=== PATIENT | female | born 1990 | race African-American/Black ===

== ENCOUNTER 2016-08-13 19:52 | Emergency (ER) | payer BC ==
[2016-08-13] MEDS ORDERED: Lidocaine 1% 20 ML MDV INJECT ONE (20:07)
[2016-08-13] MEDS ORDERED: Diphtheria,Pertussis(Acell),Tetanus Vaccine 0.5 ML Syringe IM ONE (20:07)
[2016-08-13] MEDS ORDERED: Bacitracin Oint 1 GM U/D Packet TOP ONE (20:07)
--- NOTE | 2016-08-13 20:13 | EDM.PDOC ---
ED HPI Skin/Rash - General Chief Complaint: Laceration Stated Complaint: LACERATION RT MIDDLE FINGER Time Seen by Provider: 08/13/16 20:08 - History of Present Illness INITIAL COMMENTS - FREE TEXT/NARRATIVE: HISTORY AND PHYSICAL: History of present illness: Patient 25 year black female deserts or laceration of the third digit of her left hand that occurred when she was washing dishes she is up-to-date on her tetanus and denies any other trauma or concern Review of systems: As per history of present illness and below otherwise all systems reviewed and negative. Past medical history: As per history of present illness and as reviewed below otherwise noncontributory. Surgical history: As per history of present illness and as reviewed below otherwise noncontributory. Social history: No reported history of drug or alcohol abuse. Family history: As per history of present illness and as reviewed below otherwise noncontributory. Physical exam: HEENT: Atraumatic, normocephalic, pupils reactive, negative for conjunctival pallor or scleral icterus, mucous membranes moist, throat clear, neck supple, nontender, trachea midline. Lungs: Clear to auscultation, breath sounds equal bilaterally, chest nontender. Heart: S1S2, regular, negative for clicks, rubs, or JVD. Abdomen: Soft, nondistended, nontender. Negative for masses or hepatosplenomegaly. Negative for costovertebral tenderness. Pelvis: Stable nontender. Genitourinary: Deferred. Rectal: Deferred. Extremities: Patient has approximately 2 cm moderate depth laceration of the proximal aspect of the third digit of her left hand this is on the volar surface as no tendon involvement CMS neurovascular is unremarkable Neuro: Awake, alert, oriented. Cranial nerves II through XII unremarkable. Cerebellum unremarkable. Motor and sensory unremarkable throughout. Exam nonfocal. Diagnostics: None Therapeutics: Patient was anesthetized 1% lidocaine without epinephrine irrigated prepped and draped in sterile manner and closed with 4-0 nylon interrupted suture gauze bacitracin was applied Impression: #1 laceration third digit left hand Definitive disposition and diagnosis as appropriate pending reevaluation and review of above. - Related Data Allergies Allergy/AdvReac Type Severity Reaction Status Date / Time No Known Allergies Allergy Verified 01/15/16 01:00 Home Meds: Ambulatory Orders Medication Instructions Recorded Confirmed #103/Iron Fumarate/Fa 1 each PO DAILY 11/30/15 01/15/16 [ ] Past Medical History - Past Health History Medical/Surgical History: Denies Medical/Surgical History HEENT History: Reports: None Cardiovascular History: Reports: None Respiratory History: Reports: None Gastrointestinal History: Reports: None Genitourinary History: Reports: None Musculoskeletal History: Reports: None Neurological History: Reports: None Psychiatric History: Reports: None Endocrine/Metabolic History: Reports: None Hematologic History: Reports: None Immunologic History: Reports: None Oncologic (Cancer) History: Reports: None Dermatologic History: Reports: None - Infectious Disease History Infectious Disease History: Reports: None - Past Surgical History HEENT Surgical History: Reports: None Cardiovascular Surgical History: Reports: None Respiratory Surgical History: Reports: None GI Surgical History: Reports: None Female Surgical History: Reports: None Social & Family History - Family History Family Medical History: Noncontributory - Tobacco Use Smoking Status *Q: Never Smoker Second Hand Smoke Exposure: No - Recreational Drug Use Recreational Drug Use: No ED ROS GENERAL - Review of Systems Review Of Systems: ROS reveals no pertinent complaints other than HPI. ED EXAM, SKIN/RASH Exam: See Below (See dictation) Course - Vital Signs Last Recorded V/S: Last Vital Signs Temp 36.9 C 08/13/16 19:55 Pulse 73 08/13/16 19:55 Resp 18 08/13/16 19:55 BP 133/78 08/13/16 19:55 Pulse Ox 100 08/13/16 19:55 - Orders/Labs/Meds Orders: Active Orders 24 hr Category Date Time Status Vaccines to be Administered [RC] PER UNIT ROUTINE Care 08/13/16 20:07 Active Meds: Medications Discontinued Medications Generic Name Dose Route Start Last Admin Trade Name Luann PRN Reason Stop Dose Admin Bacitracin 1 dose 08/13/16 20:07 Bacitracin Oint 1 Gm TOP 08/13/16 20:08 ONETIME ONE Diphtheria/Tetanus/Acell Pertussis 0.5 ml 08/13/16 20:07 Adacel IM 08/13/16 20:08 .ONCE ONE Lidocaine HCl 20 ml 08/13/16 20:07 Xylocaine 1% INJECT 08/13/16 20:08 ONETIME ONE Departure - Departure Time of Disposition: 20:12 Disposition: Home, Self-Care 01 Condition: good Clinical Impression: Hand laceration Forms: ED Department Discharge Additional Instructions: The following information is given to patients seen in the emergency department who are being discharged to home. This information is to outline your options for follow-up care. We provide all patients seen in our emergency department with a follow-up referral. The need for follow-up, as well as the timing and circumstances, are variable depending upon the specifics of your emergency department visit. If you don't have a primary care physician on staff, we will provide you with a referral. We always advise you to contact your personal physician following an emergency department visit to inform them of the circumstance of the visit and for follow-up with them and/or the need for any referrals to a consulting specialist. The emergency department will also refer you to a specialist when appropriate. This referral assures that you have the opportunity for followup care with a specialist. All of these measure are taken in an effort to provide you with optimal care, which includes your followup. Under all circumstances we always encourage you to contact your private physician who remains a resource for coordinating your care. When calling for followup care, please make the office aware that this follow-up is from your recent emergency room visit. If for any reason you are refused follow-up, please contact the [facility] emergency department at and asked to speak to the emergency department charge nurse. Followup primary medical doctor one to 2 days suture removal 10-14 days return as needed as discussed - My Orders Last 24 Hours: My Active Orders 08/13/16 20:07 Vaccines to be Administered [RC] PER UNIT ROUTINE - Assessment/Plan Last 24 Hours: My Active Orders 08/13/16 20:07 Vaccines to be Administered [RC] PER UNIT ROUTINE
[2016-08-13 20:48] VITALS: BP 128/74
== END 2016-08-13 20:40 | disposition home or self-care (01) ==
LOC: MW.ED 19:52
DX: S61.212A Laceration without foreign body of right middle finger without damage to nail, initial encounter (principal); Z23 Encounter for immunization; W45.8XXA Other foreign body or object entering through skin, initial encounter; Y93.G1 Activity, food preparation and clean up
CPT/HCPCS: 12001; 90471; 90715; 99282; 99282-25

== ENCOUNTER 2016-10-09 15:47 | Emergency (ER) | payer BC ==
--- NOTE | 2016-10-09 16:05 | EDM.PDOC ---
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 Patient indicates she is passing clots and felt that she was since she has not had a menstrual cycle since the end of July.] Review of systems: As per history of present illness and below otherwise all systems reviewed and negative. Past medical history: As per history of present illness and as reviewed below otherwise noncontributory. Surgical history: As per history of present illness and as reviewed below otherwise noncontributory. Social history: No reported history of drug or alcohol abuse. Family history: As per history of present illness and as reviewed below otherwise noncontributory. Physical exam: HEENT: Atraumatic, normocephalic, pupils reactive, negative for conjunctival pallor or scleral icterus, mucous membranes moist, throat clear, neck supple, nontender, trachea midline. Lungs: Clear to auscultation, breath sounds equal bilaterally, chest nontender. Heart: S1S2, regular, negative for clicks, rubs, or JVD. Abdomen: Soft, nondistended, nontender. Negative for masses or hepatosplenomegaly. Negative for costovertebral tenderness. Pelvis: Stable nontender. Genitourinary: Deferred. Rectal: Deferred. Extremities: Atraumatic, negative for cords or calf pain. Neurovascular unremarkable. Neuro: Awake, alert, oriented. Cranial nerves II through XII unremarkable. Cerebellum unremarkable. Motor and sensory unremarkable throughout. Exam nonfocal. Diagnostics: [HCG Quant, UA, CBC, CMP, Rh, transvag US] Therapeutics: [] Impression: [Live intrauterine of approximately 10 week] Plan: [Pelvic rest followup with OB] Definitive disposition and diagnosis as appropriate pending reevaluation and review of above. - Related Data Allergies Allergy/AdvReac Type Severity Reaction Status Date / Time No Known Allergies Allergy Verified 10/09/16 15:55 Home Meds: Home Meds . 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: , Spontaneous Musculoskeletal History: Reports: None Neurological History: Reports: None Psychiatric History: Reports: None Endocrine/Metabolic History: Reports: None Hematologic History: Reports: None Immunologic History: Reports: None Oncologic (Cancer) History: Reports: None Dermatologic History: Reports: None - Infectious Disease History Infectious Disease History: Reports: None - Past Surgical History HEENT Surgical History: Reports: None Cardiovascular Surgical History: Reports: None Respiratory Surgical History: Reports: None GI Surgical History: Reports: None Female Surgical History: Reports: None Social & Family History - Family History Family Medical History: Noncontributory - Tobacco Use Smoking Status *Q: Never Smoker Second Hand Smoke Exposure: No - Caffeine Use Caffeine Use: Reports: None - Recreational Drug Use Recreational Drug Use: No ED ROS GENERAL - Review of Systems Review Of Systems: See Below (The history of present illness) ED EXAM - Physical Exam Exam: See Below (History of present illness) Course - Vital Signs Last Recorded V/S: Last Vital Signs Temp 36.4 C 10/09/16 15:57 Pulse 86 10/09/16 15:57 Resp 16 10/09/16 15:57 BP 121/86 10/09/16 15:57 Pulse Ox 98 10/09/16 15:57 - Orders/Labs/Meds Orders: Active Orders 24 hr Category Date Time Status OB 1st Tri Sgl 1st Gest [US] Stat Exams 10/09/16 16:33 Ordered CULTURE URINE [] Stat Lab 10/09/16 16:16 Ordered Labs: Laboratory Tests 10/09/16 10/09/16 10/09/16 Range/Units 15:54 16:03 16:03 WBC 11.90 H (4.0-11.0) K/uL RBC 5.71 (4.30-5.90) M/uL Hgb 12.4 (12.0-16.0) g/dL Hct 38.0 (36.0-46.0) % MCV 66.5 L (80.0-98.0) fL MCH 21.7 L (27.0-32.0) pg MCHC 32.6 (31.0-37.0) g/dL RDW Std Deviation 37.0 (28.0-62.0) fl RDW Coeff of Mirta 16 H (11.0-15.0) % Plt Count 321 (150-400) K/uL Neut % (Auto) 66.4 (48.0-80.0) % Lymph % (Auto) 26.3 (16.0-40.0) % [place] % (Auto) 4.6 (0.0-15.0) % Eos % (Auto) 2.5 (0.0-7.0) % Baso % (Auto) 0.2 (0.0-1.5) % Neut # (Auto) 7.9 H (1.4-5.7) K/uL Lymph # (Auto) 3.1 H (0.6-2.4) K/uL [place] # (Auto) 0.6 (0.0-0.8) K/uL Eos # (Auto) 0.3 (0.0-0.7) K/uL Baso # (Auto) 0.0 (0.0-0.1) K/uL Nucleated RBC % 0.0 /100WBC Nucleated RBCs # 0 K/uL HCG, Quant 943843.3 mIU/mL Urine Color YELLOW Urine Appearance SLT CLOUDY Urine pH 6.5 (5.0-8.0) Ur Specific [place] 1.020 (1.001-1.035) Urine Protein TRACE (NEGATIVE) mg/dL Urine Glucose (UA) NEGATIVE (NEGATIVE) mg/dL Urine Ketones NEGATIVE (NEGATIVE) mg/dL Urine Occult Blood LARGE H (NEGATIVE) Urine Nitrite NEGATIVE (NEGATIVE) Urine Bilirubin NEGATIVE (NEGATIVE) Urine Urobilinogen 0.2 (<2.0) EU/dL Ur Leukocyte Esterase NEGATIVE (NEGATIVE) Urine RBC 50-75 H (0-2/HPF) Urine WBC 0-1 (0-5/HPF) Ur Epithelial Cells FEW (NONE-FEW) Urine Bacteria FEW (NEGATIVE) Urine Mucus LIGHT (NONE-MOD) Blood Type 10/09/16 Range/Units 16:03 WBC (4.0-11.0) K/uL RBC (4.30-5.90) M/uL Hgb (12.0-16.0) g/dL Hct (36.0-46.0) % MCV (80.0-98.0) fL MCH (27.0-32.0) pg MCHC (31.0-37.0) g/dL RDW Std Deviation (28.0-62.0) fl RDW Coeff of [place] (11.0-15.0) % Plt Count (150-400) K/uL Neut % (Auto) (48.0-80.0) % Lymph % (Auto) (16.0-40.0) % [place] % (Auto) (0.0-15.0) % Eos % (Auto) (0.0-7.0) % Baso % (Auto) (0.0-1.5) % Neut # (Auto) (1.4-5.7) K/uL Lymph # (Auto) (0.6-2.4) K/uL [place] # (Auto) (0.0-0.8) K/uL Eos # (Auto) (0.0-0.7) K/uL Baso # (Auto) (0.0-0.1) K/uL Nucleated RBC % /100WBC Nucleated RBCs # K/uL HCG, Quant mIU/mL Urine Color Urine Appearance Urine pH (5.0-8.0) Ur Specific [place] (1.001-1.035) Urine Protein (NEGATIVE) mg/dL Urine Glucose (UA) (NEGATIVE) mg/dL Urine Ketones (NEGATIVE) mg/dL Urine Occult Blood (NEGATIVE) Urine Nitrite (NEGATIVE) Urine Bilirubin (NEGATIVE) Urine Urobilinogen (<2.0) EU/dL Ur Leukocyte Esterase (NEGATIVE) Urine RBC (0-2/HPF) Urine WBC (0-5/HPF) Ur Epithelial Cells (NONE-FEW) Urine Bacteria (NEGATIVE) Urine Mucus (NONE-MOD) Blood Type O POSITIVE Departure - Departure Time of Disposition: 18:57 Disposition: Home, Self-Care 01 Condition: good Clinical Impression: Threatened , Intrauterine - Discharge Information Forms: ED Department Discharge Additional Instructions: The following information is given to patients seen in the emergency department who are being discharged to home. This information is to outline your options for follow-up care. We provide all patients seen in our emergency department with a follow-up referral. The need for follow-up, as well as the timing and circumstances, are variable depending upon the specifics of your emergency department visit. If you don't have a primary care physician on staff, we will provide you with a referral. We always advise you to contact your personal physician following an emergency department visit to inform them of the circumstance of the visit and for follow-up with them and/or the need for any referrals to a consulting specialist. The emergency department will also refer you to a specialist when appropriate. This referral assures that you have the opportunity for follow-up care with a specialist. All of these measure are taken in an effort to provide you with optimal care, which includes your follow-up. Under all circumstances we always encourage you to contact your private physician who remains a resource for coordinating your care. When calling for follow-up care, please make the office aware that this follow-up is from your recent emergency room visit. If for any reason you are refused follow-up, please contact the [facility] Emergency Department at and asked to speak to the emergency department charge nurse. Pelvic rest for the next 4-6 weeks Followup with your OB KOREY Return to ED as needed as discussed - My Orders Last 24 Hours: My Active Orders 10/09/16 16:16 CULTURE URINE [RM] Stat 10/09/16 16:33 OB 1st Tri Sgl 1st Gest [US] Stat - Assessment/Plan Last 24 Hours: My Active Orders 10/09/16 16:16 CULTURE URINE [RM] Stat 10/09/16 16:33 OB 1st Tri Sgl 1st Gest [US] Stat
[2016-10-09 19:10] VITALS: BP 120/85
--- NOTE | 2016-10-11 13:31 | US ---
EXAM DATE: 10/09/16 PATIENT'S AGE: 25 Patient: LANA BARBER Facility: [place], [place] Site . Site : 1990 Study: US OB Pelvis [id number] 6:05:37 PM Ordering Physician: Doctor Shoemaker Final Report: INDICATION: First trimester with bleeding. Technique: Early obstetrical ultrasound. Transabdominal images were obtained. Findings: Intrauterine . A pole or yolk sac and cardiac activity is present. The heart rate measures 154 beats per minute. A thin rim of crescentic hypoechoic fluid is present around the fundal portion of the gestational sac. The ovaries are sonographically unremarkable. No free fluid is present in the pelvis. Impression: Small crescentic subchorionic fluid collection adjacent to the fundal endometrium in gestational sac. Intrauterine with gestational age of 10 weeks according to crown-rump length of 3.1 cm. Estimated delivery date of 05/07/2017. Dictated by Gilson Arriaga MD @ Oct 09 2016 6:32PM (Electronic Signature) Report Signed by Proxy. GEENA
== END 2016-10-09 19:03 | disposition home or self-care (01) ==
LOC: MW.ED 15:47
DX: O20.0 Threatened abortion (principal); Z3A.10 10 weeks gestation of pregnancy
CPT/HCPCS: 36415; 76801; 76801-26; 81001; 84702; 85025; 86900; 86901; 99283; 99284-25

== ENCOUNTER 2016-12-09 16:40 | Emergency (ER) | payer BC ==
--- NOTE | 2016-12-09 18:44 | EDM.PDOC ---
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 She's been following regularly with her psychological aide, Lacy Ruelas, who recommends that she comes to the ER for evaluation. G2, P1.] Review of systems: As per history of present illness and below otherwise all systems reviewed and negative. Past medical history: As per history of present illness and as reviewed below otherwise noncontributory. Surgical history: As per history of present illness and as reviewed below otherwise noncontributory. Social history: No reported history of drug or alcohol abuse. Family history: As per history of present illness and as reviewed below otherwise noncontributory. Physical exam: HEENT: Atraumatic, normocephalic. Lungs: Clear to auscultation, breath sounds equal bilaterally. Heart: S1S2, regular rate and rhythm. Abdomen: Gravid, consistent with 16 week . Otherwise Soft, nondistended , nontender. Genitourinary: Deferred. Rectal: Deferred. Extremities: Atraumatic, ambulatory. Neurovascular unremarkable. Neuro: Awake, alert, oriented. Motor and sensory unremarkable throughout. Exam nonfocal. Diagnostics: [2nd trimester OB ultrasound] Impression: [viable 18 week, 6 day intrauterine ] Plan: [Follow up with OB next week. Return to ER as needed as discussed. Strict return precautions are given. Patient is in agreement with today's plan. ] Definitive disposition and diagnosis as appropriate pending reevaluation and review of above. - Related Data Allergies Allergy/AdvReac Type Severity Reaction Status Date / Time No Known Allergies Allergy Verified 12/09/16 16:52 Home Meds: Home Meds . 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: , Spontaneous Musculoskeletal History: Reports: None Neurological History: Reports: None Psychiatric History: Reports: None Endocrine/Metabolic History: Reports: None Hematologic History: Reports: None Immunologic History: Reports: None Oncologic (Cancer) History: Reports: None Dermatologic History: Reports: None - Infectious Disease History Infectious Disease History: Reports: None - Past Surgical History HEENT Surgical History: Reports: None Cardiovascular Surgical History: Reports: None Respiratory Surgical History: Reports: None GI Surgical History: Reports: None Female Surgical History: Reports: None Social & Family History - Family History Family Medical History: Noncontributory - Tobacco Use Smoking Status *Q: Never Smoker Second Hand Smoke Exposure: No - Caffeine Use Caffeine Use: Reports: None - Recreational Drug Use Recreational Drug Use: No ED ROS GENERAL - Review of Systems Review Of Systems: ROS reveals no pertinent complaints other than HPI. ED EXAM - Physical Exam Exam: See Below Course - Vital Signs Last Recorded V/S: Last Vital Signs Temp 97.7 F 12/09/16 16:53 Pulse 84 12/09/16 19:03 Resp 16 12/09/16 19:03 BP 123/76 12/09/16 19:03 Pulse Ox 97 12/09/16 19:03 Departure - Departure Time of Disposition: 18:52 Disposition: Home, Self-Care 01 Condition: Good Clinical Impression: 18 weeks gestation of - Discharge Information Instructions: Second Trimester of , [id number] Referrals: Lacy Ruelas CNM [Primary Care Provider] - Forms: ED Department Discharge Additional Instructions: The following information is given to patients seen in the emergency department who are being discharged to home. This information is to outline your options for follow-up care. We provide all patients seen in our emergency department with a follow-up referral. The need for follow-up, as well as the timing and circumstances, are variable depending upon the specifics of your emergency department visit. If you don't have a primary care physician on staff, we will provide you with a referral. We always advise you to contact your personal physician following an emergency department visit to inform them of the circumstance of the visit and for follow-up with them and/or the need for any referrals to a consulting specialist. The emergency department will also refer you to a specialist when appropriate. This referral assures that you have the opportunity for follow-up care with a specialist. All of these measure are taken in an effort to provide you with optimal care, which includes your follow-up. Under all circumstances we always encourage you to contact your private physician who remains a resource for coordinating your care. When calling for follow-up care, please make the office aware that this follow-up is from your recent emergency room visit. If for any reason you are refused follow-up, please contact the [facility] emergency department at and asked to speak to the emergency department charge nurse. [facility] Primary care - Women's Health [address] [place] [id number] Follow-up with Lacy Ruelas next week as you have scheduled. Return to ER as needed as discussed.
--- NOTE | 2016-12-09 20:04 | US ---
EXAM DATE: 12/09/16 PATIENT'S AGE: 26 Patient: LANA BARBER Facility: [place], [place] Site . Site : 1990 Study: OB Pelvis [id number] 6:42:51 PM Ordering Physician: Doctor Shoemaker Final Report: INDICATION: No movement for 2 days TECHNIQUE: Limited transabdominal OB pelvic ultrasound COMPARISON: October 09, 2016 FINDINGS: Sonographic imaging demonstrates a single living intrauterine gestation. Fetus demonstrates a regular cardiac rate of 131 beats per minute. Fetus has a cephalic orientation. The placenta lies posterior without evidence of placenta previa. Amniotic fluid volume appears normal. The following biometric measurements were obtained: Biparietal diameter: 4.4 cm/ 19 weeks 2 days Head circumference: 16.0 cm/18 weeks 6 days Abdominal circumference: 12.3 cm/ 18 weeks 0 days Femur length: 3.0 cm/ 19 weeks 2 days The composite ultrasound gestational age is calculated at 18 weeks 6 days with an estimated sonographic due date of May 06, 2017. The estimated weight is 246 gram grams which lies at the 44%. There is adequate diastolic blood flow within the umbilical artery. IMPRESSION.: Viable intrauterine . No gross abnormalities seen. Dictated by Mariaelena Yip MD @ Dec 09 2016 6:52PM (Electronic Signature) Report Signed by Proxy. GEENA
[2016-12-10 01:15] VITALS: BP 123/76
== END 2016-12-09 19:03 | disposition home or self-care (01) ==
LOC: MW.ED 16:40
DX: Z34.82 Encounter for supervision of other normal pregnancy, second trimester (principal); Z3A.16 16 weeks gestation of pregnancy
CPT/HCPCS: 76815; 76815-26; 99283; 99283-25

== ENCOUNTER 2017-03-17 21:24 | Observation (INO) | payer BC ==
[2017-03-17] MEDS ORDERED: Nalbuphine 10 MG/1 ML Vial IVPUSH PRN (22:58)
[2017-03-17] MEDS ORDERED: Butorphanol 1 MG/ML SDV IVPUSH PRN (22:58)
[2017-03-17] MEDS ORDERED: Sodium Chloride 0.9% 2.5 ML Syringe FLUSH PRN (22:58)
[2017-03-17] MEDS ORDERED: Sodium Chloride 0.9% 10 ML Syringe FLUSH PRN (22:58)
[2017-03-17] MEDS ORDERED: Water For Irrigation,Sterile 1,000 ML Container IRR PRN (22:58)
[2017-03-17] MEDS ORDERED: Lactated Ringers 1,000 ML IV SCH (23:00)
[2017-03-17] MEDS ORDERED: Betamethasone Acetate/Betamethasone Sod Phosphate 30 MG/5 ML MDV IM SCH ×2 (23:00)
--- NOTE | 2017-03-17 23:11 | PCM.LDHP ---
L&D History of Present Illness - General Date of Service: 03/17/17 Admit Problem/Dx: Patient Status Order with Admit Dx/Problem 03/17/17 22:59 Patient Status [ADT] Routine Admission Diagnosis/Problem Admission Diagnosis/Problem Source of Information: Patient History Limitations: Reports: No Limitations - History of Present Illness Improves with: Reports: None Worsens with: Reports: None Associated Symptoms: Reports: N - Related Data Allergies/Adverse Reactions: Allergies Allergy/AdvReac Type Severity Reaction Status Date / Time No Known Allergies Allergy Verified 12/09/16 16:52 Home Medications: Home Meds . [No Known Home Meds] 10/09/16 [History] Past Medical History - Past Health History Medical/Surgical History: Denies Medical/Surgical History HEENT History: Reports: None Cardiovascular History: Reports: None Respiratory History: Reports: None Gastrointestinal History: Reports: None Genitourinary History: Reports: None CLOTH LAYER History: Reports: , Spontaneous Musculoskeletal History: Reports: None Neurological History: Reports: None Psychiatric History: Reports: None Endocrine/Metabolic History: Reports: None Hematologic History: Reports: None Immunologic History: Reports: None Oncologic (Cancer) History: Reports: None Dermatologic History: Reports: None - Infectious Disease History Infectious Disease History: Reports: None - Past Surgical History HEENT Surgical History: Reports: None Cardiovascular Surgical History: Reports: None Respiratory Surgical History: Reports: None GI Surgical History: Reports: None Female Surgical History: Reports: None Social & Family History - Family History Family Medical History: Noncontributory - Tobacco Use Smoking Status *Q: Never Smoker Second Hand Smoke Exposure: No - Caffeine Use Caffeine Use: Reports: None - Recreational Drug Use Recreational Drug Use: No H&P Review of Systems - Review of Systems: Review Of Systems: See Below General: Reports: No Symptoms HEENT: Reports: No Symptoms Pulmonary: Reports: No Symptoms Cardiovascular: Reports: No Symptoms Gastrointestinal: Reports: No Symptoms Genitourinary: Reports: No Symptoms Musculoskeletal: Reports: No Symptoms Skin: Reports: No Symptoms Psychiatric: Reports: No Symptoms Neurological: Reports: No Symptoms Hematologic/Lymphatic: Reports: No Symptoms Immunologic: Reports: No Symptoms L&D Exam - Exam Exam: See Below - Vital Signs Weight: 83.915 kg - OB Specific Fundal Height In cm: 32 Contraction Intensity: Mild Movement: Active Heart Tones: Present Presentation: Vertex - Jorge Score Jorge Score Cervix Position: Midposition Jorge Score Consistency: Medium Jorge Score Effacement: 31-50% Jorge Score Dilation: Closed Jorge Score Infant's Station: -3 Jorge Score Total: 3 - Exam General: Alert, Oriented HEENT: PERRLA, Conjunctiva Clear, EACs Clear, EOMI, Hearing Intact, Mucosa Moist & [place], Nares Patent, Normal Nasal Septum, Posterior Pharynx Clear, TMs Clear Neck: Supple, Trachea Midline Lungs: Clear to Auscultation, Normal Respiratory Effort Cardiovascular: Regular Rate, Regular Rhythm GI/Abdominal Exam: Normal Bowel Sounds, Soft, Non-Tender, No Organomegaly, No Distention, No Abnormal Bruit, No Mass, Pelvis Stable Rectal Exam: Normal Exam, Normal Rectal Tone Genitourinary: Normal external exam, Normal bimanual exam, Normal speculum exam Back Exam: Normal Inspection, Full Range of Motion Extremities: Normal Inspection, Normal Range of Motion, Non-Tender, No Pedal Edema, Normal Capillary Refill Skin: Warm, Dry, Intact Neurological: Cranial Nerves Intact, Reflexes Equal Bilateral Psychiatric: Alert, Normal Affect, Normal Mood - Patient Data Lab Results Last 24 hrs: Laboratory Results - last 24 hr 03/17/17 Range/Units 21:40 Membrane Rupture POSITIVE Problem List Initiated/Reviewed/Updated: Yes Orders Last 24hrs: Active Orders 24 hr Category Date Time Status Patient Status [ADT] Routine ADT 03/17/17 22:59 Ordered Heart Tones [RC] CONTINUOUS Care 03/17/17 22:59 Ordered Non Stress Test [RC] PER UNIT ROUTINE Care 03/17/17 22:59 Ordered May Shower [RC] ASDIRECTED Care 03/17/17 22:59 Ordered Notify Provider [RC] PRN Care 03/17/17 22:59 Ordered Up ad Crystal [RC] ASDIRECTED Care 03/17/17 22:59 Ordered Vaginal Exam [RC] PRN Care 03/17/17 22:59 Ordered Vital Signs [RC] PER UNIT ROUTINE Care 03/17/17 22:59 Ordered Regular Diet [DIET] Diet 03/17/17 Breakfast Ordered OB Ltd 1 or More Fetus [US] Routine Exams 03/17/17 22:03 Ordered CBC W/O DIFF,HEMOGRAM [HEME] Routine Lab 03/17/17 22:59 Ordered TYPE AND SCREEN [BBK] Routine Lab 03/17/17 22:59 Ordered Ampicillin 1 gm Med 03/17/17 23:00 Ordered Sodium Chloride 0.9% [Normal Saline] 50 ml IV Q6H Betamet Acet/Betamet Na Phos [Celestone Soluspan 6 MG/ Med 03/17/17 23:00 Ordered ML] 12 mg IM Q24H Betamet Acet/Betamet Na Phos [Celestone Soluspan 6 MG/ Med 03/17/17 23:00 Ordered ML] 12 mg IM Q24H Butorphanol [Stadol] Med 03/17/17 22:58 Ordered 1 mg IVPUSH Q1H PRN Lactated Ringers @ 150 MLS/HR(1000ml) Med 03/17/17 23:00 Ordered Lactated Ringers [Ringers, Lactated] 1,000 ml IV ASDIRECTED Lactated Ringers [Ringers, Lactated] 1,000 ml Med 03/17/17 23:15 Ordered IV ASDIRECTED Nalbuphine [Nubain] Med 03/17/17 22:58 Ordered 10 mg IVPUSH Q1H PRN Sodium Chloride 0.9% [Saline Flush] Med 03/17/17 22:58 Ordered 10 ml FLUSH ASDIRECTED PRN Sodium Chloride 0.9% [Saline Flush] Med 03/17/17 22:58 Ordered 2.5 ml FLUSH ASDIRECTED PRN Water For Irrigation,Sterile [Sterile Water for Med 03/17/17 22:58 Ordered Irrigation] 1,000 ml IRR ASDIRECTED PRN Scalp Electrode [WOMSER] Per Unit Routine Oth 03/17/17 22:59 Ordered Peripheral IV Insertion Adult [OM.PC] Routine Oth 03/17/17 22:59 Ordered Resuscitation Status Routine Resus Stat 03/17/17 22:58 Ordered Medication Orders Betamethasone Acet/Betameth SodPhos (Celestone Soluspan 6 Mg/Ml) 12 mg IM Q24H JSOIE Lactated Ringer's (Ringers, Lactated) 1,000 mls @ 125 mls/hr IV ASDIRECTED JOSIE Assessment/Plan Comment:: IUP 32 wks P1001 had SROM at 8 pm that was confirmed with amiotest and decrease amniotic fluid by us. Plan to admitted to the hospital start on antibiotic steroid and then will transfer the pt in am.
[2017-03-17] MEDS: Lactated Ringers 1,000 ML IV SCH (23:52)
[2017-03-17] MEDS: Ampicillin 1 GM in Sodium Chloride 0.9% 50 ML IV SCH (23:56)
[2017-03-18] MEDS: Lactated Ringers 1,000 ML IV SCH (05:12)
[2017-03-18] MEDS: Ampicillin 1 GM in Sodium Chloride 0.9% 50 ML IV SCH (05:50)
--- NOTE | 2017-03-18 09:48 | PCM.PNLD ---
Labor Progress Note - VS & Meds Active Medications: Current Medications Betamethasone Acet/Betameth SodPhos (Celestone Soluspan 6 Mg/Ml) 12 mg IM Q24H [facility] Last Admin: 03/17/17 23:42 Dose: 12 mg Betamethasone Acet/Betameth SodPhos (Celestone Soluspan 6 Mg/Ml) 12 mg IM Q24H [facility] Stop: 03/18/17 23:01 Butorphanol Tartrate (Stadol) 1 mg IVPUSH Q1H PRN PRN Reason: Pain Lactated Ringer's (Ringers, Lactated) 1,000 mls @ 125 mls/hr IV ASDIRECTED [facility] Last Admin: 03/18/17 05:12 Dose: 125 mls/hr Ampicillin Sodium 1 gm/ Sodium (Chloride) 50 mls @ 100 mls/hr IV Q6H [facility] Last Infusion: 03/18/17 05:51 Dose: 100 mls/hr Lactated Ringer's (Ringers, Lactated) 1,000 mls @ 150 mls/hr IV ASDIRECTED [facility] Nalbuphine HCl (Nubain) 10 mg IVPUSH Q1H PRN PRN Reason: Pain (severe 7-10) Sodium Chloride (Saline Flush) 10 ml FLUSH ASDIRECTED PRN PRN Reason: Keep Vein Open Sodium Chloride (Saline Flush) 2.5 ml FLUSH ASDIRECTED PRN PRN Reason: Keep Vein Open Sterile Water (Sterile Water For Irrigation) 1,000 ml IRR ASDIRECTED PRN PRN Reason: delivery - Uterine Contractions Uterine Monitoring Mode: External [place] Contraction Duration (sec): mild Contraction Intensity: Mild - Monitoring Monitor Mode: External Ultrasound Heart Rate (FHR) Variability: Moderate (6-25 bmp) Decelerations: None Strip Review: Category I - Vaginal Exam Station: Out of Pelvis - Labor Progress (Free Text) Labor Progress: Pt afebriel not natalya she will be transfer to [facility] accept her.
--- NOTE | 2017-03-18 14:29 | US ---
EXAM DATE: 03/17/17 PATIENT'S AGE: 26 Patient: LANA BARBER Facility: [place], [place] Site . Site : 1990 Study: OB Pelvis [id number] 11:03:21 PM Ordering Physician: Frances Dawkins Final Report: INDICATION: Rupture of membranes, 32 weeks 4 days TECHNIQUE: Limited transabdominal OB pelvis for evaluation of amniotic fluid index. COMPARISON: December 23, 2016 FINDINGS: Sonographic imaging demonstrates a single living intrauterine gestation. Fetus demonstrates a regular cardiac rate of 130 beats per minute. Fetus has a vertex orientation. The amniotic fluid index is 8.1 cm. IMPRESSION: 1. Single living intrauterine gestation. 2. Amniotic fluid index is 8.1 cm, slightly lower than normal. Dictated by Mariaeelna Yip MD @ Mar 17 2017 11:14PM (Electronic Signature) Report Signed by Proxy. GEENA
== END 2017-03-18 10:45 ==
LOC: MW.OBCHECK 21:24 → MW.OB 22:31 → MW.OBCHECK 23:08
PROVIDERS: ADMIT Obstetrics & Gynecology; ATTEND Obstetrics & Gynecology
DX: O42.913 Preterm premature rupture of membranes, unspecified as to length of time between rupture and onset of labor, third trimester (principal); Z3A.32 32 weeks gestation of pregnancy
CPT/HCPCS: 59025; 76815; 84112; 85027; 86850; 86900; 86901; 96361; 96372; 96374; 96376; G0378; J0290; J0702; J7050; J7120

== ENCOUNTER 2024-08-26 19:53 | Emergency (ER) | payer BC ==
[2024-08-26 20:08] LABS: APPEARANCE,URINE CLEAR; BILIRUBIN,URINE NEGATIVE (NEGATIVE); COLOR,URINE YELLOW; GLUCOSE,URINE NEGATIVE (NEGATIVE); KETONES,URINE NEGATIVE (NEGATIVE); LEUKOCYTE ESTERASE,URINE NEGATIVE (NEGATIVE); NITRITE,URINE NEGATIVE (NEGATIVE); OCCULT BLOOD,URINE NEGATIVE (NEGATIVE); PROTEIN,URINE NEGATIVE (NEGATIVE); UROBILINOGEN,URINE 0.2 EU/dL (<2.0)
[2024-08-26 20:22] LABS: BASOPHILS ABSOLUTE AUTO 0.03 K/uL (0.00-0.20); BASOPHILS PERCENT AUTO 0.3 % (0.0-1.0); EOSINOPHILS ABSOLUTE AUTO 0.14 K/uL (0.00-0.45); EOSINOPHILS PERCENT AUTO 1.2 % (0.0-6.0); HEMATOCRIT 38.9 % (37.0-47.0); HEMOGLOBIN 12.5 g/dL (12.0-16.0); IMMATURE GRAN ABSOLUTE AUTO 0.08 K/uL (0.00-0.05); IMMATURE GRAN PERCENT AUTO 0.7 % (0.0-0.4); LYMPHOCYTES ABSOLUTE AUTO 2.72 K/uL (1.00-4.80); LYMPHOCYTES PERCENT AUTO 23.3 % (24.0-44.0); MEAN CORPUSCULAR HEMOGLOBIN 22.2 pg (28.0-32.0); MEAN CORPUSCULAR HGB CONC 32.1 g/dL (32.0-36.0); MEAN PLATELET VOLUME 10.4 fL (9.4-12.3); MONOCYTES ABSOLUTE AUTO 0.64 K/uL (0.00-0.80); MONOCYTES PERCENT AUTO 5.5 % (0.0-8.0); NEUTROPHILS ABSOLUTE AUTO 8.07 K/uL (1.80-7.70); PLATELET COUNT,PLT 307 K/uL (150-400); RED BLOOD CELL COUNT 5.64 M/uL (4.10-5.30); WHITE BLOOD CELL COUNT,WBC 11.68 K/uL (3.9-11.3)
[2024-08-26] MEDS: Acetaminophen 500 MG Tab PO ONE (20:29)
[2024-08-26] MEDS: Ondansetron 4 MG Tab.DIS PO ONE (20:29)
[2024-08-26 20:47] LABS: ALBUMIN 3.8 g/dL (3.4-5.0); BILIRUBIN TOTAL 0.4 mg/dL (0.2-1.0); CALCIUM 9.3 mg/dL (8.5-10.1); CARBON DIOXIDE,CO2 25.8 mmol/L (21.0-32.0); CREATININE 0.7 mg/dL (0.6-1.0); EST CRCL DRUG DOSING (CG) 103.82 mL/min; POTASSIUM,K 3.7 mmol/L (3.5-5.1); PROTEIN TOTAL,TP 7.5 g/dL (6.4-8.2)
[2024-08-26 22:10] VITALS: BP 131/91; PULSE 83
== END 2024-08-26 22:10 | disposition home or self-care (01) ==
LOC: MW.ED 19:53
DX: O99.891 Other specified diseases and conditions complicating pregnancy (principal); R10.2 Pelvic and perineal pain; Z79.899 Other long term (current) drug therapy; Z3A.00 Weeks of gestation of pregnancy not specified; Z75.8 Other problems related to medical facilities and other health care
CPT/HCPCS: 36415; 76817; 80053; 81003; 83605; 83690; 84702; 85025; 99284; A9270; 99283

== ENCOUNTER 2024-09-07 09:38 | Emergency (ER) | payer BC ==
[2024-09-07 10:05] LABS: BASOPHILS ABSOLUTE AUTO 0.04 K/uL (0.00-0.20); BASOPHILS PERCENT AUTO 0.4 % (0.0-1.0); EOSINOPHILS ABSOLUTE AUTO 0.17 K/uL (0.00-0.45); EOSINOPHILS PERCENT AUTO 1.5 % (0.0-6.0); HEMATOCRIT 40.5 % (37.0-47.0); HEMOGLOBIN 13.5 g/dL (12.0-16.0); IMMATURE GRAN ABSOLUTE AUTO 0.11 K/uL (0.00-0.05); LYMPHOCYTES ABSOLUTE AUTO 2.42 K/uL (1.00-4.80); LYMPHOCYTES PERCENT AUTO 21.8 % (24.0-44.0); MEAN CORPUSCULAR HEMOGLOBIN 22.8 pg (28.0-32.0); MEAN CORPUSCULAR HGB CONC 33.3 g/dL (32.0-36.0); MEAN CORPUSCULAR VOLUME 68.5 fL (83.0-99.0); MEAN PLATELET VOLUME 10.1 fL (9.4-12.3); MONOCYTES ABSOLUTE AUTO 0.62 K/uL (0.00-0.80); MONOCYTES PERCENT AUTO 5.6 % (0.0-8.0); NEUTROPHILS ABSOLUTE AUTO 7.72 K/uL (1.80-7.70); NEUTROPHILS PERCENT AUTO 69.7 % (41.0-71.0); PLATELET COUNT,PLT 310 K/uL (150-400); RED BLOOD CELL COUNT 5.91 M/uL (4.10-5.30); WHITE BLOOD CELL COUNT,WBC 11.08 K/uL (3.9-11.3)
[2024-09-07 10:16] LABS: INR 0.99 (0.86-1.11)
[2024-09-07] MEDS: Sodium Chloride 0.9% 1,000 ML IV ONE (10:21)
[2024-09-07 10:51] LABS: A/G RATIO 0.9 (0.9-1.6); ALBUMIN 3.8 g/dL (3.4-5.0); BILIRUBIN TOTAL 0.9 mg/dL (0.2-1.0); CALCIUM 9.7 mg/dL (8.5-10.1); CREATININE 0.7 mg/dL (0.6-1.0); EST CRCL DRUG DOSING (CG) 103.82 mL/min; POTASSIUM,K 3.9 mmol/L (3.5-5.1); PROTEIN TOTAL,TP 7.9 g/dL (6.4-8.2)
[2024-09-07 12:05] LABS: APPEARANCE,URINE SLT CLOUDY; BILIRUBIN,URINE NEGATIVE (NEGATIVE); COLOR,URINE YELLOW; GLUCOSE,URINE NEGATIVE (NEGATIVE); KETONES,URINE NEGATIVE (NEGATIVE); LEUKOCYTE ESTERASE,URINE NEGATIVE (NEGATIVE); NITRITE,URINE NEGATIVE (NEGATIVE); OCCULT BLOOD,URINE LARGE (NEGATIVE); PROTEIN,URINE NEGATIVE (NEGATIVE); UROBILINOGEN,URINE 0.2 EU/dL (<2.0)
[2024-09-07 12:12] LABS: BACTERIA,URINE RARE (NEGATIVE); EPITHELIAL CELLS,URINE RARE (NONE-FEW); RBC,URINE 50-60 (0-2/HPF); WBC,URINE 0-1 (0-5/HPF)
[2024-09-07 13:52] VITALS: BP 113/86; PULSE 79
== END 2024-09-07 13:52 | disposition home or self-care (01) ==
LOC: MW.ED 09:38
DX: O20.8 Other hemorrhage in early pregnancy (principal); Z3A.09 9 weeks gestation of pregnancy; Z75.3 Unavailability and inaccessibility of health-care facilities
CPT/HCPCS: 36415; 76815; 80053; 81001; 84702; 85025; 85610; 86850; 86900; 86901; 96360; 96361; 99284; J7030; 99283

== ENCOUNTER 2025-03-16 12:02 | Inpatient (IN) | payer BC ==
[2025-03-16] MEDS ORDERED: Sodium Chloride 0.9% 10 ML Syringe FLUSH PRN ×2 (12:11→15:59)
[2025-03-16] MEDS ORDERED: Sodium Chloride 0.9% 2.5 ML Syringe FLUSH PRN ×2 (12:11→15:59)
[2025-03-16 12:32] LABS: BASOPHILS ABSOLUTE AUTO 0.03 K/uL (0.00-0.20); BASOPHILS PERCENT AUTO 0.5 % (0.0-1.0); EOSINOPHILS ABSOLUTE AUTO 0.16 K/uL (0.00-0.45); EOSINOPHILS PERCENT AUTO 2.5 % (0.0-6.0); IMMATURE GRAN ABSOLUTE AUTO 0.03 K/uL (0.00-0.05); IMMATURE GRAN PERCENT AUTO 0.5 % (0.0-0.4); LYMPHOCYTES ABSOLUTE AUTO 1.79 K/uL (1.00-4.80); LYMPHOCYTES PERCENT AUTO 27.6 % (24.0-44.0); MONOCYTES ABSOLUTE AUTO 0.36 K/uL (0.00-0.80); MONOCYTES PERCENT AUTO 5.5 % (0.0-8.0); NEUTROPHILS ABSOLUTE AUTO 4.12 K/uL (1.80-7.70); NEUTROPHILS PERCENT AUTO 63.4 % (41.0-71.0); NRBC ABSOLUTE 0.00 K/uL (0.00-0.02); NRBC PERCENT 0.0 /100WBC (0.0-0.2); PLATELET COUNT,PLT 285 K/uL (150-400); RED BLOOD CELL COUNT 5.27 M/uL (4.10-5.30); WHITE BLOOD CELL COUNT,WBC 6.49 K/uL (3.9-11.3)
[2025-03-16 13:03] LABS: A/G RATIO 0.7 (0.9-1.6); ALANINE AMINOTRANSFERASE,ALT 63.0 IU/L (14-63); ASPARTATE AMNIOTRANSFERASE,AST 31.0 IU/L (15-37); BILIRUBIN TOTAL 0.5 mg/dL (0.2-1.0); BLOOD UREA NITROGEN,BUN 9.0 mg/dL (7.0-18.0); CARBON DIOXIDE,CO2 25.6 mmol/L (21.0-32.0); CHLORIDE,CL 106.0 mmol/L (98-107); CREATININE 0.8 mg/dL (0.6-1.0); EST CRCL DRUG DOSING (CG) 90.0 mL/min; GLUCOSE RANDOM 100.0 mg/dL (74-106); POTASSIUM,K 3.6 mmol/L (3.5-5.1); PROTEIN TOTAL,TP 7.0 g/dL (6.4-8.2); SODIUM,NA 141.0 mmol/L (136-145)
[2025-03-16 13:04] LABS: ESTIMATED GFR 100.0 mL/min (>60)
[2025-03-16 13:29] LABS: APPEARANCE,URINE SLT CLOUDY; GLUCOSE,URINE NEGATIVE (NEGATIVE); OCCULT BLOOD,URINE LARGE (NEGATIVE)
[2025-03-16 13:43] LABS: EPITHELIAL CELLS,URINE FEW (NONE-FEW)
[2025-03-16 14:13] LABS: CREATININE,URINE RAND 38.8 mg/dL; PROTEIN CREATININE RATIO,URINE 0.7; PROTEIN,URINE RANDOM 27.5 mg/dL (<11.9)
[2025-03-16] MEDS: NIFEdipine 30 MG Tab.ER PO ONE (15:29)
[2025-03-16] MEDS ORDERED: Calcium Gluconate 10% 1 GM/10 ML SDV IV PRN (15:59)
[2025-03-16] MEDS ORDERED: hydrALAZINE 20 MG/ML SDV IVPUSH PRN (15:59)
[2025-03-16] MEDS ORDERED: Labetalol 100 MG/20 ML MDV ONE (16:13)
[2025-03-16] MEDS: Labetalol 100 MG/20 ML MDV IVPUSH PRN (16:22)
[2025-03-16] MEDS: Lactated Ringers 1,000 ML IV SCH (16:26)
[2025-03-16] MEDS: Magnesium Sulfate 2 GM/50 mL 6 GM in Premix Bag 1 BAG IV ONE (16:26)
[2025-03-16] MEDS: Magnesium Sulfate 20 GM/500mL 20 GM/500 ML BAG IV SCH (16:57)
[2025-03-16 20:37] LABS: BASOPHILS ABSOLUTE AUTO 0.05 K/uL (0.00-0.20); BASOPHILS PERCENT AUTO 0.6 % (0.0-1.0); EOSINOPHILS ABSOLUTE AUTO 0.17 K/uL (0.00-0.45); EOSINOPHILS PERCENT AUTO 2.2 % (0.0-6.0); IMMATURE GRAN ABSOLUTE AUTO 0.03 K/uL (0.00-0.05); IMMATURE GRAN PERCENT AUTO 0.4 % (0.0-0.4); LYMPHOCYTES ABSOLUTE AUTO 1.97 K/uL (1.00-4.80); LYMPHOCYTES PERCENT AUTO 25.5 % (24.0-44.0); MONOCYTES ABSOLUTE AUTO 0.57 K/uL (0.00-0.80); MONOCYTES PERCENT AUTO 7.4 % (0.0-8.0); NEUTROPHILS ABSOLUTE AUTO 4.94 K/uL (1.80-7.70); NEUTROPHILS PERCENT AUTO 63.9 % (41.0-71.0); NRBC ABSOLUTE 0.00 K/uL (0.00-0.02); NRBC PERCENT 0.0 /100WBC (0.0-0.2); PLATELET COUNT,PLT 312 K/uL (150-400); RED BLOOD CELL COUNT 5.20 M/uL (4.10-5.30); WHITE BLOOD CELL COUNT,WBC 7.73 K/uL (3.9-11.3)
[2025-03-16 21:12] LABS: A/G RATIO 0.7 (0.9-1.6); ALANINE AMINOTRANSFERASE,ALT 62.0 IU/L (14-63); ASPARTATE AMNIOTRANSFERASE,AST 30.0 IU/L (15-37); BILIRUBIN TOTAL 0.4 mg/dL (0.2-1.0); BLOOD UREA NITROGEN,BUN 7.0 mg/dL (7.0-18.0); CARBON DIOXIDE,CO2 24.9 mmol/L (21.0-32.0); CHLORIDE,CL 105.0 mmol/L (98-107); CREATININE 0.7 mg/dL (0.6-1.0); EST CRCL DRUG DOSING (CG) 102.86 mL/min; ESTIMATED GFR 117.0 mL/min (>60); GLUCOSE RANDOM 91.0 mg/dL (74-106); POTASSIUM,K 3.4 mmol/L (3.5-5.1); PROTEIN TOTAL,TP 7.2 g/dL (6.4-8.2); SODIUM,NA 140.0 mmol/L (136-145)
[2025-03-17] MEDS: Magnesium Sulfate 20 GM/500mL 20 GM/500 ML BAG IV SCH (03:34)
[2025-03-17] MEDS: Ondansetron 4 MG/2 ML SDV IVPUSH ONE (07:26)
[2025-03-17 11:37] LABS: NRBC ABSOLUTE 0.00 K/uL (0.00-0.02); NRBC PERCENT 0.0 /100WBC (0.0-0.2); PLATELET COUNT,PLT 309 K/uL (150-400); RED BLOOD CELL COUNT 5.50 M/uL (4.10-5.30); WHITE BLOOD CELL COUNT,WBC 9.67 K/uL (3.9-11.3)
[2025-03-17 11:47] LABS: A/G RATIO 0.7 (0.9-1.6); ALANINE AMINOTRANSFERASE,ALT 58.0 IU/L (14-63); ASPARTATE AMNIOTRANSFERASE,AST 29.0 IU/L (15-37); BILIRUBIN TOTAL 0.5 mg/dL (0.2-1.0); BLOOD UREA NITROGEN,BUN 7.0 mg/dL (7.0-18.0); CARBON DIOXIDE,CO2 24.0 mmol/L (21.0-32.0); CHLORIDE,CL 105.0 mmol/L (98-107); CREATININE 0.7 mg/dL (0.6-1.0); EST CRCL DRUG DOSING (CG) 102.86 mL/min; GLUCOSE RANDOM 120.0 mg/dL (74-106); POTASSIUM,K 3.4 mmol/L (3.5-5.1); PROTEIN TOTAL,TP 7.4 g/dL (6.4-8.2); SODIUM,NA 140.0 mmol/L (136-145)
[2025-03-17 11:50] LABS: ESTIMATED GFR 117.0 mL/min (>60)
[2025-03-17] MEDS: NIFEdipine 30 MG Tab.ER PO ONE (14:54)
[2025-03-17 17:54] VITALS: BP 139/100; PULSE 67
== END 2025-03-17 16:43 | disposition home or self-care (01) | DRG 561 ==
LOC: MW.ED 12:02 → MW.OB 13:50 → MW.ED 14:00 → MW.OB 15:22 → OBSVTOIN 15:59 → MW.OB 03-17 10:41
PROVIDERS: ADMIT Obstetrics & Gynecology; ATTEND Obstetrics & Gynecology
DX: O16.5 Unspecified maternal hypertension, complicating the puerperium (principal); O99.13 Other diseases of the blood and blood-forming organs and certain disorders involving the immune mechanism complicating the puerperium; O90.81 Anemia of the puerperium; D56.1 Beta thalassemia
CPT/HCPCS: 36415; 51702; 80053; 81001; 82570; 83735; 84156; 85025; 85027; 87086; 99221; 99238; 99284; 99285; A9270-GY; J1920; J3475; J7120